=== PATIENT | male | born 1980 | race African-American/Black ===

== ENCOUNTER 2017-07-08 01:25 | Emergency (ER) | payer SELFPAY ==
[2017-07-08] MEDS ORDERED: Ketorolac Tromethamine 30 MG/ML VIAL ONE (02:35)
== END 2017-07-08 03:00 | disposition home or self-care (01) ==
LOC: ERS 01:25
DX: K05.00 Acute gingivitis, plaque induced (principal); K02.9 Dental caries, unspecified; K03.81 Cracked tooth; F17.200 Nicotine dependence, unspecified, uncomplicated
CPT/HCPCS: 96372; J1885

== ENCOUNTER 2017-07-08 20:12 | Emergency (ER) | payer SELFPAY ==
[2017-07-08] MEDS ORDERED: Lidocaine 1% PF 5 ML VIAL ONE (20:22)
[2017-07-08] MEDS ORDERED: Bupivacaine/Epinephrine 0.25% 30 ML VIAL IJ SCH (20:45)
== END 2017-07-08 21:10 | disposition home or self-care (01) ==
LOC: ERS 20:12
DX: K08.89 Other specified disorders of teeth and supporting structures (principal); F17.200 Nicotine dependence, unspecified, uncomplicated; Z71.6 Tobacco abuse counseling
CPT/HCPCS: 99406; J2001